=== PATIENT | female | born 1950 | race Caucasian/White ===

== ENCOUNTER 2024-11-01 14:26 | Outpatient (CLI) | payer MEDICARE, OTHER ==
--- NOTE | 2024-11-02 07:29 | RADIOLOGY REPORT ---
CLINICAL INFORMATION: Left shoulder pain. Primary osteoarthritis. Biomet protocol for pre-surgical planning. TECHNIQUE: Axial CT images of the left shoulder were obtained without IV contrast. Coronal and sagitt al reformatted images were obtained, reviewed, and stored. All CT scans at this medical facility are performed using dose modulation techniques as appropriate to a performed exam including the followin g: Automated exposure control was utilized; adjustment of the MA and/or KV according to patient size; and use of iterative reconstruction technique. CTDIvol = 5.08 mGy DLP = 108.9 mGy-cm COMPARISON: None FINDINGS: No acute fracture severe osteoarthritic changes of the glenohumeral joint with severe joint space narrowing, subchondral sclerosis, subchondral cystic change, prominent marginal osteophytes. T here is up to 6 degrees glenoid retroversion. There is a mild degree of posterior decentering of the humeral head relative to the articular surface of the glenoid. No significant glenoid bone loss. Acro mial humeral interval is within normal limits. Mild arthritic changes of the acromioclavicular joint. No significant muscle atrophy is seen. There are surgical clips in the left axilla. Soft tissues latrice ear otherwise unremarkable. IMPRESSION: Severe osteoarthritic changes in the left glenohumeral joint as detailed above.
== END 2024-11-01 23:59 | disposition home or self-care (01) ==
LOC: RAD 14:26
PROVIDERS: ATTEND Specialist
DX: M19.012 Primary osteoarthritis, left shoulder (principal); M25.512 Pain in left shoulder; M25.812 Other specified joint disorders, left shoulder
CPT/HCPCS: 73200